=== PATIENT | female | born 1950 | race Caucasian/White ===

== ENCOUNTER 2017-08-22 11:38 | Day surgery (SDC) | payer MEDICARE, OTHER ==
[~2017-08-22] VITALS: Ht 160 cm; Wt 90.9 kg
[~2017-08-22 11:38] MED LIST: ATOR10; CYAN500; EQ ALLERGY & S1 EACH; ERGO400; FISH OIL + D31 EACH; Ibuprofen Ib200 MG; VISINE ADVANCED15 ML; Verotin-Gr Cap1 EACH
== END 2017-08-22 13:30 | disposition home or self-care (01) ==
LOC: ORSCSDS 11:38
PROVIDERS: Internal Medicine Gastroenterology
PROC: 0DBN8ZZ Excision of Sigmoid Colon, Via Natural or Artificial Opening Endoscopic (ICD-10-PCS; principal; 2017-08-22 13:00)
DX: Z12.11 Encounter for screening for malignant neoplasm of colon (principal); K63.5 Polyp of colon; K64.8 Other hemorrhoids; E78.5 Hyperlipidemia, unspecified; K57.30 Diverticulosis of large intestine without perforation or abscess without bleeding; Z87.891 Personal history of nicotine dependence
CPT/HCPCS: 88305; J7120

== ENCOUNTER 2018-09-21 16:38 | Emergency (ER) | payer MEDICARE, OTHER ==
[~2018-09-21] VITALS: Ht 160 cm; Wt 91.6 kg
[~2018-09-21 16:38] MED LIST changes: -ATOR10; +ATOR10 PO; -CYAN500; +CYAN500 PO; -EQ ALLERGY & S1 EACH; +EQ ALLERGY & S1 EACH PO; -ERGO400; +ERGO400 PO; -FISH OIL + D31 EACH; +FISH OIL + D31 EACH PO; -Ibuprofen Ib200 MG; +Ibuprofen Ib200 MG PO; -VISINE ADVANCED15 ML; +VISINE ADVANCED15 ML BOTHEYES; -Verotin-Gr Cap1 EACH; +Verotin-Gr Cap1 EACH PO
[2018-09-21 17:31] LABS: Source, Urine Clean Catch
[2018-09-21 17:38] LABS: Appearance, Urine Hazy (Clear); Bilirubin, Urine Neg (Neg); Blood, Urine 1+ (Neg); Color, Urine Yellow (P-Yellow); Glucose Qualitative, Urine Neg (Neg); Ketones, Urine Neg (Neg); Leukocyte Esterase, Urine Neg (Neg); Nitrite, Urine Neg (Neg); Protein, Urine 2+ (Neg); Specific Gravity, Urine 1.025 (1.003-1.022); Urobilinogen, Urine 1+ (Normal)
[2018-09-21 17:39] LABS: BASOPHILS ABSOLUTE AUTO 0.04 K/mm3 (0.00-0.23); BASOPHILS PERCENT AUTO 0 % (0-2); EOSINOPHILS ABSOLUTE AUTO 0.04 K/mm3 (0.00-0.68); EOSINOPHILS PERCENT AUTO 0 % (0-6); Hematocrit 42.2 % (33.0-51.0); Hemoglobin 14.1 g/dL (11.5-16.0); IMMATURE GRAN ABSOLUTE AUTO 0.03 K/mm3 (0.00-0.10); IMMATURE GRAN PERCENT AUTO 0 % (0-1); LYMPHOCYTES ABSOLUTE AUTO 2.02 K/mm3 (0.84-5.20); LYMPHOCYTES PERCENT AUTO 16 % (21-46); MONOCYTES ABSOLUTE AUTO 0.93 K/mm3 (0.16-1.47); MONOCYTES PERCENT AUTO 8 % (4-13); Mean Corpuscular HGB 28.5 pg (26.0-34.0); Mean Corpuscular HGB Conc 33.4 g/dL (31.5-36.5); Mean Corpuscular Volume 85 fL (80-100); Mean Platelet Volume 10.1 fL (9.1-12.4); NEUTROPHILS ABSOLUTE AUTO 9.33 K/mm3 (1.96-9.15); NEUTROPHILS PERCENT AUTO 75 % (41-73); Platelet Count 250 K/mm3 (150-400); RDW Coefficient Variation 12.8 % (11.7-14.2); RDW Standard Deviation 39.3 fL (35.1-46.3); Red Blood Cell Count 4.95 M/mm3 (3.80-5.20); White Blood Cell Count 12.39 K/mm3 (4.00-11.30)
[2018-09-21] MEDS ORDERED: Flonase 0.05% N16 GM (17:48)
[2018-09-21] MEDS ORDERED: Prinivil10 MG PO (17:48)
[2018-09-21] MEDS ORDERED: ESTRADIOL1 MG PO (17:48)
[2018-09-21 17:49] LABS: Amorphous Light (0-Heavy); Bacteria Many /hpf; Red Blood Cells, Urine 0-2 /hpf (0-2); Squamous Epithelial Cells Mod /hpf (Few); White Blood Cells, Urine 0-2 /hpf (0-5)
[2018-09-21 17:51] LABS: Anion Gap 6 mmol/L (6-16); Blood Urea Nitrogen 16 mg/dL (8-24); Bun/Creatinine Ratio 21.5 (12.0-20.0); CO2, Blood 28 mmol/L (21-32); Calcium, Blood 8.7 mg/dL (8.5-10.1); Chloride, Blood 108 mmol/L (98-108); Creatinine, Blood 0.75 mg/dL (0.40-1.00); Glomerular Filtration Rate >60 (60-); Glucose, Blood 110 mg/dL (70-99); Potassium, Blood 3.7 mmol/L (3.5-5.5); Sodium, Blood 142 mmol/L (136-145)
[2018-09-21] MEDS ORDERED: IBUP800 PO (19:08)
[2018-09-21] MEDS ORDERED: Norco 5-325 Ta1 EACH PO (19:08)
== END 2018-09-21 19:18 | disposition home or self-care (01) ==
LOC: ER 16:38
PROVIDERS: Emergency Medicine
DX: R10.9 Unspecified abdominal pain (principal); Z79.899 Other long term (current) drug therapy
CPT/HCPCS: 36415; 74176; 80048; 81001; 85025; 87086; 99284-25; A9270

== ENCOUNTER 2020-03-23 08:15 | Day surgery (SDC) | payer MEDICARE, OTHER ==
[~2020-03-23] VITALS: Ht 160 cm; Wt 87.3 kg
[~2020-03-23 08:15] MED LIST changes: +ESTRADIOL1 MG PO; +Flonase 0.05% N16 GM; +IBUP200 PO; +IBUP800 PO; -Ibuprofen Ib200 MG PO; +Norco 5-325 Ta1 EACH PO; +Prinivil10 MG PO; +VOLTAREN ARTHRI20 GM TOP
--- NOTE | 2020-03-23 10:01 | NUR ---
History, Chart, Medications and Allergies reviewed before start of procedure. Lungs clear T/O to Auscultation. Patient confirms NPO status and agrees with scheduled surgery. Pre-Op teaching done. Pt verbalizes understanding. Patient reports completing Chlorhexadine shower X2 prior to admission to hospital.
--- NOTE | 2020-03-23 10:03 | NUR ---
PT AMB TO BATHROOM RETURNED AND IV FLUIDS ATTACHED TO IV AND PT C/O PAIN AND SOME SWELLING NOTED AT IV SITE. NEW IV STARTED AND THIS IV DC'D INTACT. PT TOLERATED WELL
[2020-03-23] MEDS ORDERED: ASPI81CH PO (16:53)
[2020-03-23] MEDS ORDERED: Percocet 5-3251 EACH PO (16:54)
--- NOTE | 2020-03-23 19:15 | NUR ---
SHIFT SUMMARY PT HAS DONE WELL POST OP. NO THERAPY BUT AMBULATED IN HALLWAYS x 2 & UP IN CHAIR SINCE AFTERNOON. PT'S GOAL WAS TO NOT TAKE ANY NARCOTICS BUT PAIN DID INCREASE SO 1 OXY GIVEN. EATING, DRINKING, & VOIDING WELL.
[2020-03-24 04:30] LABS: BASOPHILS ABSOLUTE AUTO 0.02 K/mm3 (0.00-0.23); BASOPHILS PERCENT AUTO 0 % (0-2); EOSINOPHILS PERCENT AUTO 0 % (0-6); Hematocrit 39.6 % (33.0-51.0); IMMATURE GRAN ABSOLUTE AUTO 0.05 K/mm3 (0.00-0.10); IMMATURE GRAN PERCENT AUTO 0 % (0-1); LYMPHOCYTES ABSOLUTE AUTO 1.17 K/mm3 (0.84-5.20); LYMPHOCYTES PERCENT AUTO 8 % (21-46); MONOCYTES ABSOLUTE AUTO 0.61 K/mm3 (0.16-1.47); MONOCYTES PERCENT AUTO 4 % (4-13); Mean Corpuscular HGB 28.1 pg (26.0-34.0); Mean Corpuscular HGB Conc 32.8 g/dL (31.5-36.5); Mean Corpuscular Volume 86 fL (80-100); Mean Platelet Volume 9.4 fL (9.1-12.4); NEUTROPHILS ABSOLUTE AUTO 12.62 K/mm3 (1.96-9.15); NEUTROPHILS PERCENT AUTO 87 % (41-73); Platelet Count 249 K/mm3 (150-400); RDW Coefficient Variation 12.7 % (11.7-14.2); RDW Standard Deviation 39.3 fL (35.1-46.3); Red Blood Cell Count 4.63 M/mm3 (3.80-5.20); White Blood Cell Count 14.47 K/mm3 (4.00-11.30)
[2020-03-24 04:46] LABS: Anion Gap 4 mmol/L (6-16); Blood Urea Nitrogen 15 mg/dL (8-24); Bun/Creatinine Ratio 19.8 (12.0-20.0); CO2, Blood 29 mmol/L (21-32); Calcium, Blood 8.5 mg/dL (8.5-10.1); Chloride, Blood 105 mmol/L (98-108); Creatinine, Blood 0.76 mg/dL (0.40-1.00); Glomerular Filtration Rate >60 (60-); Glucose, Blood 123 mg/dL (70-99); Potassium, Blood 3.9 mmol/L (3.5-5.5); Sodium, Blood 138 mmol/L (136-145)
--- NOTE | 2020-03-24 05:55 | NUR ---
SHIFT SUMMARY PT AOX4. POD1 L TKA. L KNEE W/ AQUACEL AND UZIEL WRAP REMAIN CDI. PT AMBULATE IN THE HALLWAY X1 LAST NIGHT. SHE WAS UP IN CHAIR UNTIL MIDNIGHT. SHE HAD MULTIPLE VOIDS IN THE BATHROOM. AMBULATING W/ 1 MIN ASSIST, TOLERATING AMBULATION W/ WALKER&GB WELL. PAIN MANAGED W/ SCHEDULED TORADOL AND TYLNOL. I DIDN'T HAVE TO MEDICATED HER FOR NORCO T/0 THE SHIFT. PT MARISEL REG DIET DENIES N/V. PT DENIES PASSING FLATUS. PT ALSO DENIES NUMBNESS AND TINLGING SENSATION. PT WILL SEE THERAPIST TODAY TO GET CLEARED FOR DISCHARGE.
--- NOTE | 2020-03-24 09:40 | NUR ---
DISCHARGE CLEARED THERAPY, PAIN WELL MANAGED. AMBULATING WELL. SCRIPTS, DRSGS, & POLAR PACK SENT. ESCORTED OUT VIA W/C.
== END 2020-03-24 09:50 | disposition home or self-care (01) ==
LOC: ORSCMMR 08:15 → ORD 09:45 → SURS 12:15 → ORSCMMR 03-24 09:50 → SURS 03-24 09:50
PROVIDERS: Orthopaedic Surgery
DX: M17.12 Unilateral primary osteoarthritis, left knee (principal); I10 Essential (primary) hypertension; E78.5 Hyperlipidemia, unspecified; Z87.891 Personal history of nicotine dependence; E66.9 Obesity, unspecified; Z68.34 Body mass index [BMI] 34.0-34.9, adult; Z79.899 Other long term (current) drug therapy
CPT/HCPCS: 27447; S2900; 36415; 73560-LT; 80048; 85025; 88300; 97116; 97162; 97530; A9270; A9270-GY; C1776; J0171; J0690; J0735; J1100; J1885; J2250; J2370; J2405; J2704; J2795; J3010; J7120

== ENCOUNTER → 2022-01-19 | Outpatient (CLI) | payer OTHER ==
[~2022-01-19] MED LIST changes: +ASPI81CH PO; +Percocet 5-3251 EACH PO
== END | disposition home or self-care (01) ==
LOC: LAB SHORT 11:25 → LAB 11:25
DX: L57.0 Actinic keratosis (principal)
CPT/HCPCS: 88305

== ENCOUNTER 2022-07-04 08:34 | Day surgery (SDC) | payer MEDICARE, OTHER ==
[2022-06-20 17:58] LABS: BASOPHILS ABSOLUTE AUTO 0.02 K/mm3 (0.00-0.23); BASOPHILS PERCENT AUTO 0 % (0-2); EOSINOPHILS ABSOLUTE AUTO 0.06 K/mm3 (0.00-0.68); EOSINOPHILS PERCENT AUTO 1 % (0-6); Hematocrit 42.2 % (33.0-51.0); Hemoglobin 13.8 g/dL (11.5-16.0); IMMATURE GRAN ABSOLUTE AUTO 0.02 K/mm3 (0.00-0.10); IMMATURE GRAN PERCENT AUTO 0 % (0-1); LYMPHOCYTES ABSOLUTE AUTO 2.48 K/mm3 (0.84-5.20); LYMPHOCYTES PERCENT AUTO 28 % (21-46); MONOCYTES ABSOLUTE AUTO 0.51 K/mm3 (0.16-1.47); MONOCYTES PERCENT AUTO 6 % (4-13); Mean Corpuscular HGB 27.9 pg (26.0-34.0); Mean Corpuscular HGB Conc 32.7 g/dL (31.5-36.5); Mean Corpuscular Volume 85 fL (80-100); Mean Platelet Volume 9.2 fL (9.1-12.4); NEUTROPHILS ABSOLUTE AUTO 5.73 K/mm3 (1.96-9.15); NEUTROPHILS PERCENT AUTO 65 % (41-73); Platelet Count 315 K/mm3 (150-400); RDW Coefficient Variation 13.1 % (11.7-14.2); RDW Standard Deviation 40.7 fL (35.1-46.3); Red Blood Cell Count 4.94 M/mm3 (3.80-5.20); White Blood Cell Count 8.82 K/mm3 (4.00-11.30)
[2022-06-20 21:56] LABS: Bun/Creatinine Ratio 25.5 (12.0-20.0); Calcium, Blood 9.4 mg/dL (8.5-10.1); Creatinine, Blood 0.83 mg/dL (0.40-1.00); Potassium, Blood 3.7 mmol/L (3.5-5.5)
[~2022-07-04] VITALS: Ht 160 cm; Wt 83.4 kg
[~2022-07-04 08:34] MED LIST changes: +ACET500 PO; +Acerola C500 MG PO; +CHONDROITIN SU100 G1 PO; +ELEMENTAL ZINC30 MG PO; +GABA100 PO; +GLUC500; +GLUCHON PO; +HAIR, SKIN AND1 EAC3 PO; +MULVITA PO; +Magnesium500 M1 PO; +VITAMIN B125000 MC1 PO
--- NOTE | 2022-07-04 10:23 | NUR ---
Surgical site prepped with 2% Chlorhexidine cloth wipe. History, Chart, Medications and Allergies reviewed before start of procedure. Lungs clear T/O to Auscultation. Pre-Op teaching done. Pt verbalizes understanding.
--- NOTE | 2022-07-04 13:02 | NUR ---
07/04/22 1302 Carlos Srivastava I PT ARRIVED TO OR WITH A BRUISE, YELLOW/PURPLE, TO MEDIAL ASPECT OF RIGHT KNEE, APPROXIMATELY 2.[address] CHAVIS WAS NOTIFIED UPON ENTERING THE ROOM.
--- NOTE | 2022-07-04 14:39 | NUR ---
PT ARRIVED TO THE UNIT AT APPROXIMATELY 1421. PT ALERT AND ORIENTED AT TIME OF ARRIVAL. PT DENIED PAIN. PT ABLE TO MOVE BLE, BUT STILL REPORTED DECREASED SENSATION. VSS.
--- NOTE | 2022-07-04 20:13 | NUR ---
SHIFT SUMMARY PT IS POD#0 FROM R TKA WITH DR. CHAVIS. PT HAS WORKED WITH THERAPY AND IS A 1 ASSIST WHEN OOB. PAIN MANAGED WITH PO PAIN MEDICATION. PT IS TOLERATING PO AND SHE HAS VOIDED. REPORT GIVEN TO WM COOPER.
--- NOTE | 2022-07-05 04:57 | NUR ---
BAND EDGER SUMMARY PT IS POD 0 FOR R TKA. DRESSING TO R KNEE C/D/I. PT HAS AMBULATED SEVERAL TIMES TO THE BATHROOM WITH A FWW AND 1 ASSIST. PAIN MANAGED WITH SCHEDULED TORADOL AND TYLENOL, 1 TAB OXY GIVEN X1 FOR BREAKTHROUGH PAIN. PT REPORTED SOME NAUSEA THIS AM AFTER GETTING UP TO BATHROOM, ZOFRAN PROVIDED. VSS, WILL CONTINUE TO MONITOR.
[2022-07-05 05:58] LABS: BASOPHILS ABSOLUTE AUTO 0.02 K/mm3 (0.00-0.23); BASOPHILS PERCENT AUTO 0 % (0-2); EOSINOPHILS ABSOLUTE AUTO 0.14 K/mm3 (0.00-0.68); EOSINOPHILS PERCENT AUTO 1 % (0-6); Hematocrit 32.4 % (33.0-51.0); Hemoglobin 10.6 g/dL (11.5-16.0); IMMATURE GRAN ABSOLUTE AUTO 0.04 K/mm3 (0.00-0.10); IMMATURE GRAN PERCENT AUTO 0 % (0-1); LYMPHOCYTES ABSOLUTE AUTO 1.74 K/mm3 (0.84-5.20); LYMPHOCYTES PERCENT AUTO 13 % (21-46); MONOCYTES ABSOLUTE AUTO 0.97 K/mm3 (0.16-1.47); MONOCYTES PERCENT AUTO 7 % (4-13); Mean Corpuscular HGB 28.2 pg (26.0-34.0); Mean Corpuscular HGB Conc 32.7 g/dL (31.5-36.5); Mean Corpuscular Volume 86 fL (80-100); Mean Platelet Volume 9.5 fL (9.1-12.4); NEUTROPHILS ABSOLUTE AUTO 10.98 K/mm3 (1.96-9.15); NEUTROPHILS PERCENT AUTO 79 % (41-73); Platelet Count 221 K/mm3 (150-400); RDW Coefficient Variation 12.9 % (11.7-14.2); RDW Standard Deviation 40.9 fL (35.1-46.3); Red Blood Cell Count 3.76 M/mm3 (3.80-5.20); White Blood Cell Count 13.89 K/mm3 (4.00-11.30)
[2022-07-05 06:24] LABS: Bun/Creatinine Ratio 19.2 (12.0-20.0); Calcium, Blood 7.8 mg/dL (8.5-10.1); Creatinine, Blood 0.78 mg/dL (0.40-1.00); Potassium, Blood 3.8 mmol/L (3.5-5.5)
[2022-07-05] MEDS ORDERED: ASPI81CH PO (08:59)
[2022-07-05] MEDS ORDERED: Percocet 5-3251 EACH PO (09:00)
--- NOTE | 2022-07-05 10:09 | NUR ---
DISCHARGE PT HAS CLEARED THERAPY. PAIN WELL CONTROLLED. EATING, DRINKING, & VOIDING WELL. [facility] & ROSEANNA HAYNES SENT w/ PT. SPOUSE PICKE SCRIPTS PRIOR TO ARRIVING HERE. ESCORTED OUT VIA W/C.
== END 2022-07-05 10:47 | disposition home or self-care (01) ==
LOC: ORSCMMR 08:34 → ORD 10:00 → ORSCMMR 10:00 → SURS 14:10 → ORSCMMR 07-05 10:47
PROVIDERS: Orthopaedic Surgery
PROC: 0SRC0JA Replacement of Right Knee Joint with Synthetic Substitute, Uncemented, Open Approach (ICD-10-PCS; principal; 2022-07-04 10:00)
DX: M17.11 Unilateral primary osteoarthritis, right knee (principal); I10 Essential (primary) hypertension; Z87.891 Personal history of nicotine dependence; Z79.899 Other long term (current) drug therapy
CPT/HCPCS: 36415; 73560-RT; 80048; 85025; 94760; 97110; 97162; 97530; A9270; C1776; J0171; J0690; J0735; J1885; J2370; J2405; J2704; J2795; J3010; J7120

== ENCOUNTER → 2022-12-06 | Outpatient (CLI) | payer MEDICARE, OTHER ==
[2022-12-06 11:22] LABS: Albumin, Blood 3.7 g/dL (3.4-5.0); Bilirubin, Total 0.3 mg/dL (0.1-1.0); Bun/Creatinine Ratio 12.6 (12.0-20.0); Calcium, Blood 8.6 mg/dL (8.5-10.1); Creatinine, Blood 0.8 mg/dL (0.40-1.00); Globulin, Blood 3.6 g/dL (2.2-4.0); Potassium, Blood 4.1 mmol/L (3.5-5.5); Total Protein, Blood 7.3 g/dL (6.4-8.2)
== END | disposition home or self-care (01) ==
LOC: LAB 10:19 → LAB SHORT 10:19
PROVIDERS: Physician Assistant
DX: M25.50 Pain in unspecified joint (principal); R53.83 Other fatigue
CPT/HCPCS: 80053

== ENCOUNTER 2023-08-08 07:20 | Day surgery (SDC) | payer MEDICARE, OTHER ==
[~2023-08-08] VITALS: Ht 159 cm; Wt 82.0 kg
[2023-08-08] VITALS (10 sets, daily range): BP systolic 111–159; BP diastolic 62–99
[~2023-08-08 07:20] MED LIST changes: +CALCIUM CIT 311 EAC7 PO; +Lactated Ringer's 1,000 ML IV SCH
--- NOTE | 2023-08-08 07:56 | NUR ---
History, Chart, Medications and Allergies reviewed before start of procedure. Patient up to Ambulate independently. Gait steady. Pre-Op teaching done. Pt verbalizes understanding. Patient confirms NPO status and agrees with scheduled surgery. Surgical site prepped with 2% Chlorhexidine cloth wipe. Lungs clear T/O to Auscultation. Patient States Post-Procedure ride home has been arranged.
[2023-08-08] MEDS ORDERED: Bupivacaine 0.5% HCl 5 MG/ML 30MLVIAL ONE (08:24)
[2023-08-08] MEDS ORDERED: FentaNYL Citrate 50 MCG/ML 2 ML Injection ONE (08:44)
[2023-08-08] MEDS ORDERED: Dexamethasone Sod Phos 10 MG/ML 1ML VIAL ONE (08:44)
[2023-08-08] MEDS ORDERED: Ketorolac Tromethamine 30mg Vial ONE (08:44)
[2023-08-08] MEDS ORDERED: Glycopyrrolate 0.2 MG/ML 5ML VIAL ONE (08:44)
[2023-08-08] MEDS ORDERED: propofoL 20 ML IV ONE (08:44)
[2023-08-08] MEDS ORDERED: Ondansetron HCl 2 MG / ML 2ML Vial ONE (08:44)
--- NOTE | 2023-08-08 11:02 | NUR ---
DISCHARGE NOTE PT A&OX4, BREATHING RA, NO PAIN OR NAUSEA, TOLERATED PO FLUIDS AND FOOD PRIOR TO DC. Patient up to Ambulate independently. Gait steady.PT VOIDED PRIOR TO DISCHARGE. Dressing to procedure site clean, dry, intact with no visible drainage, swelling, erythema or bruising noted. Discharge instructions reviewed with patient. Patient verbalizes understanding. Copy given to patient to take home. Discharged via wheelchair to private car for ride home.
== END 2023-08-08 11:03 | disposition home or self-care (01) ==
LOC: ORSCMMR 07:20 → ORD 08:45 → ORSCMMR 11:03
PROVIDERS: Surgery
PROC: 0JB60ZX Excision of Chest Subcutaneous Tissue and Fascia, Open Approach, Diagnostic (ICD-10-PCS; principal; 2023-08-08 08:45)
DX: L72.0 Epidermal cyst (principal); E78.5 Hyperlipidemia, unspecified; I10 Essential (primary) hypertension; F32.A Depression, unspecified; F41.9 Anxiety disorder, unspecified; Z79.899 Other long term (current) drug therapy
CPT/HCPCS: 88304; J1100; J1885; J2405; J2704; J3010; J7120

== ENCOUNTER 2023-09-26 09:52 | Day surgery (SDC) | payer MEDICARE, OTHER ==
[~2023-09-26] VITALS: Ht 160 cm; Wt 80.5 kg
[~2023-09-26 09:52] MED LIST changes: +Lactated Ringer's 1,000 ML IV ONE; -Lactated Ringer's 1,000 ML IV SCH; +propofoL 50 ML IV ONE
[2023-09-26] MEDS ORDERED: Magnesium 300300 MG (10:42)
[2023-09-26] MEDS ORDERED: GLUCHON (10:42)
[2023-09-26] MEDS ORDERED: MASOPHEN325 M3 (10:43)
[2023-09-26] MEDS ORDERED: HAIR, SKIN AND1 EAC1 (10:43)
[2023-09-26] MEDS ORDERED: GABA100 (10:44)
[2023-09-26] MEDS ORDERED: Lactated Ringer's 1,000 ML IV ONE (11:15)
[2023-09-26 12:48] VITALS: BP 135/83
== END 2023-09-26 12:42 | disposition home or self-care (01) ==
LOC: ORSCSDS 09:52
PROVIDERS: Internal Medicine Gastroenterology
PROC: 0DJD8ZZ Inspection of Lower Intestinal Tract, Via Natural or Artificial Opening Endoscopic (ICD-10-PCS; principal; 2023-09-26 11:15)
DX: Z12.11 Encounter for screening for malignant neoplasm of colon (principal); Z86.010 Personal history of colon polyps; K57.30 Diverticulosis of large intestine without perforation or abscess without bleeding; F32.A Depression, unspecified; E78.5 Hyperlipidemia, unspecified; I10 Essential (primary) hypertension; Z79.899 Other long term (current) drug therapy
CPT/HCPCS: J2704; J7120

== ENCOUNTER 2024-05-18 18:12 | Emergency (ER) | payer MEDICARE, OTHER ==
[~2024-05-18] VITALS: Ht 167.6 cm; Wt 81.7 kg
[~2024-05-18 18:12] MED LIST changes: +GABA100; +GLUCHON; +HAIR, SKIN AND1 EAC1; -Lactated Ringer's 1,000 ML IV ONE; +MASOPHEN325 M3; +Magnesium 300300 MG; -propofoL 50 ML IV ONE
[2024-05-18 20:24] LABS: BASOPHILS ABSOLUTE AUTO 0.03 K/mm3 (0.00-0.23); BASOPHILS PERCENT AUTO 0 % (0-2); EOSINOPHILS ABSOLUTE AUTO 0.06 K/mm3 (0.00-0.68); EOSINOPHILS PERCENT AUTO 1 % (0-6); Hematocrit 39.3 % (33.0-51.0); Hemoglobin 13.2 g/dL (11.5-16.0); IMMATURE GRAN ABSOLUTE AUTO 0.04 K/mm3 (0.00-0.10); IMMATURE GRAN PERCENT AUTO 0 % (0-1); LYMPHOCYTES ABSOLUTE AUTO 1.64 K/mm3 (0.84-5.20); LYMPHOCYTES PERCENT AUTO 13 % (21-46); MONOCYTES PERCENT AUTO 6 % (4-13); Mean Corpuscular HGB 28.7 pg (26.0-34.0); Mean Corpuscular HGB Conc 33.6 g/dL (31.5-36.5); Mean Corpuscular Volume 85 fL (80-100); Mean Platelet Volume 8.4 fL (9.1-12.4); NEUTROPHILS ABSOLUTE AUTO 9.95 K/mm3 (1.96-9.15); NEUTROPHILS PERCENT AUTO 80 % (41-73); Platelet Count 257 K/mm3 (150-400); RDW Coefficient Variation 13.1 % (11.7-14.2); RDW Standard Deviation 40.6 fL (35.1-46.3); White Blood Cell Count 12.52 K/mm3 (4.00-11.30)
[2024-05-18 20:49] LABS: Albumin, Blood 3.7 g/dL (3.4-5.0); Bilirubin, Total 0.2 mg/dL (0.1-1.0); Bun/Creatinine Ratio 34.1 (12.0-20.0); Creatinine, Blood 0.82 mg/dL (0.40-1.00); Globulin, Blood 3.6 g/dL (2.2-4.0); Potassium, Blood 4.2 mmol/L (3.5-5.5); Total Protein, Blood 7.3 g/dL (6.4-8.2)
[2024-05-18 22:20] VITALS: BP 158/86
== END 2024-05-18 22:21 | disposition home or self-care (01) ==
LOC: ER 18:12
PROVIDERS: Student in an Organized Health Care Education/Training Program
DX: M25.512 Pain in left shoulder (principal); I10 Essential (primary) hypertension; E78.5 Hyperlipidemia, unspecified; Z79.899 Other long term (current) drug therapy
CPT/HCPCS: 71046; 80053; 83690; 84484; 85025; 93005; 93010; 99284-25